=== PATIENT | female | born 1945 | race Caucasian/White ===

== ENCOUNTER → 2016-12-31 | Outpatient (CLI) | payer BC ==
[~2016-12-31] MED LIST: ATEN-173 PO; CALCTAB13 PO; FINACEA TOP; FISHOIL PO; GLCSC750600 PO; MULTTAB58 PO
--- NOTE | 2016-12-31 16:08 | MAMMOGRAPHY REPORT ---
BILATERAL DIGITAL SCREENING MAMMOGRAM WITH CAD: 12/31/2016 CLINICAL HISTORY: Routine screening. TECHNIQUE: Bilateral CC and MLO views were obtained. Current study was also evaluated with a Compute r Aided Detection (CAD) system. COMPARISON: Comparison is made to exams dated: 12/31/2015 mammogram, 12/28/2014 mammogram, 12/27/2013 m ammogram, 12/22/2012 mammogram, 12/22/2011 mammogram, and 07/16/2010 mammogram - [facility] enter. BREAST COMPOSITION: There are scattered areas of fibroglandular density in both breasts. FINDINGS: The parenchymal pattern is similar to prior mammograms. There are minimal vascular calcif ications and scattered stable benign-appearing microcalcifications in the breasts. No developing mas s, architectural distortion or cluster of suspicious microcalcifications is seen. IMPRESSION: ACR BI-RADS CATEGORY 2: BENIGN There is no mammographic evidence of malignancy. A 1 year screening mammogram is recommended. The pa tient will receive written notification of the results. Approximately 10% of breast cancers are not detected with mammography. A negative mammographic report should not delay biopsy if a clinically suggestive mass is present. Belkis Lema M.D. ay/:12/31/2016 15:30:12 Human Resources Director: Javy Evangelista RT(R)([place]), [facility] letter sent: Normal 1/2 BI-RADS Code: ACR BI-RADS Category 2: Benign
== END | disposition home or self-care (01) ==
LOC: C.MAMM 12:07
PROVIDERS: ATTEND Family Medicine
DX: Z12.31 Encounter for screening mammogram for malignant neoplasm of breast (principal)

== ENCOUNTER → 2017-04-24 | Outpatient (CLI) | payer BC ==
--- NOTE | 2017-04-24 11:16 | DIAGNOSTIC IMAGING REPORT ---
L STERNOCLAVICULAR JOINT(S) CLINICAL HISTORY: Lump near left sternoclavicular joint. COMPARISON STUDY: None. FINDINGS: There is superior subluxation of the left sternoclavicular joint compared to the right. The left clavicle is displaced 8 mm superior in comparison to the right clavicle. There is mild widening of the left sternoclavicular joint. Poststernotomy changes are noted. No fractures identified. IMPRESSION: Widening of the left sternoclavicular joint with super subluxation/dislocation of the left clavicle in relation to the sternum. Electronically signed by: Vishal Cerna M.D. 04/24/2017 11:14 AM Dictated Date/Time: 04/24/2017 11:12 AM
[2017-04-24 12:43] LABS: BLOOD UREA NITROGEN 12 mg/dl (7-18); BUN/CREATININE RATIO 16.1 (10-20); CALCIUM 9.4 mg/dl (8.5-10.1); CARBON DIOXIDE 28 mmol/L (21-32); CHLORIDE 102 mmol/L (98-107); CREATININE 0.74 mg/dl (0.60-1.20); GLUCOSE 98 mg/dl (70-99); POTASSIUM 4.4 mmol/L (3.5-5.1); SODIUM 137 mmol/L (136-145)
== END | disposition home or self-care (01) ==
LOC: C.RAD 09:48
PROVIDERS: ATTEND Family Medicine
DX: Q74.0 Other congenital malformations of upper limb(s), including shoulder girdle (principal); Z95.4 Presence of other heart-valve replacement; Z11.59 Encounter for screening for other viral diseases

== ENCOUNTER 2021-11-26 18:48 | Inpatient (IN) ==
[2021-11-26] MEDS ORDERED: AZITHROMYCIN 500 MG in DEXTROSE 5% 250 ML IV ONE (19:11)
[2021-11-26] MEDS ORDERED: SODIUM CHLORIDE 0.9% 1000ML 1,000 ML IV ONE (19:11)
[2021-11-26] MEDS ORDERED: cefTRIAXone SODIUM 2,000 MG/70 ML BAG IV STA (19:11)
--- NOTE | 2021-11-26 19:11 | Emergency Department Note ---
Impression & Plan Hypoxia, Anemia, Acute hyponatremia ED Provider Note NAME: AUSTEN OCHOA AGE: 76 SEX: F : 1945 ARRIVES VIA: Walk-In INFORMANT: Patient ED PROVIDER(S): Srinath Maya DO CHIEF COMPLAINT: cough, fever and shortness of breath HPI: Patient is a 76-year-old female who presents to the ER for upper respiratory symptoms that started this past Thursday. She admits to a cough, runny nose, congestion, and fevers. She has not been around anybody that has been sick recently. She admits to shortness of breath as well. No belly pain, nausea, vomiting, or diarrhea. No dysuria, urgency, or frequency. No other exacerbating or remitting factors. Denies any history of smoking, asthma or COPD. ROS: See above HPI for pertinent positives & negatives. A total of 10 systems reviewed and were otherwise negative. PAST MEDICAL HISTORY:See Below PAST SURGICAL HISTORY:See Below FAMILY HISTORY:See Below SOCIAL HISTORY:See Below HOME MEDICATIONS:See Below ALLERGIES:See Below VITALS:See Below PHYSICAL EXAMINATION: GENERAL: Sitting up in bed, alert, well appearing, well nourished, no distress, non-toxic EYE EXAM: normal conjunctiva. PERRL and EOM's grossly intact. OROPHARYNX: no exudate, no erythema, lips, buccal mucosa, and tongue normal and mucous membranes are moist NECK: supple, no nuchal rigidity, no adenopathy, non-tender LUNGS: Diminished bilaterally. Normal chest wall mechanics HEART: no murmurs, S1 normal and S2 normal ABDOMEN: abdomen soft, non-tender, normo-active bowel sounds, no masses, no rebound or guarding. UPPER EXTREMITIES: upper extremities are grossly normal. LOWER EXTREMITIES: No pitting edema. NEURO EXAM: Normal sensorium, cranial nerves II-XII grossly intact, normal speech, no gross weakness of arms, no gross weakness of legs. MEDICAL DECISION MAKING: Patient is a 76-year-old female who presents the ER with above-stated complaint. IV was established blood work was obtained. She was found to be hypotensive with systolic pressures 90 and hypoxic. She was placed on 2 L nasal cannula. O2 saturations trended up from 84 to 85% to 94-98. Labs show no significant leukocytosis. Mild anemia 11.8. BMP with a moderate hyponatremia 123. CO2 low at 19. Creatinine elevated at 1.9. Lactate was normal. LFTs bilirubin was unremarkable. Troponin was negative. Pro-Mahad elevated at 2. UA was contaminated with multiple epithelial cells. Influenza COVID and RSV were negative. Chest x-ray does support pneumonia. Patient was given IV Rocephin and azithromycin as well as fluids. She remained on nasal cannula. She was updated bedside. Discussed with the hospitalist. Admitted for further work-up Triage Nursing notes reviewed. Limited review of prior medical records performed Vital Signs: reviewed and remarkable for hypoxic and hypotension Differential diagnosis: Differential diagnoses includes but is not limited to pneumonia, bronchitis, COPD/Asthma exacerbation, pneumothorax, pulmonary embolism, congestive heart failure, acute coronary syndrome ER treatment provided: See below Diagnostics interpreted by me: ECG: Sinus rhythm rate 84 Normal axis No PVCs T wave inversion in septal leads Cardiac Monitoring: An order was placed for continuous cardiac monitoring. The monitor shows a rate of 90 with sinus rhythm. Laboratory studies: As stated above and show below. Imaging studies: Portable AP upright 1 view of the chest shows pneumonia Consultation(s): To the hospitalist for further evaluation Procedures: none Critical Care: I have personally spent 35 minutes of critical care time in the direct management of this patient. This includes bedside care, interpretation of diagnostic studies, and testing, discussion with consultants, patient, and family members, and other required patient management activities. This 35 minutes is in excess of all separately billable procedures. Past Med/Surg History Medical History Acid reflux Arthritis Closed left arm fracture Hx, "healed" without surgical intervention, residual soreness Glaucoma HX History of anemia History of blood transfusion x2 episodes (40+ years ago) Hx of aortic valve disorder s/p AVR (+ TAA repair)- 2012 2/2 bicuspic AV exercise stress test (06/15/19- [facility]) with normal prosthesis systolic gradients for this type prosthesis Migraine HX Pancreatic cyst Temporomandibular joint disorder No locking, wears mouth guard HS Von Willebrand disease, type I Surgical History History of aortic aneurysm repair TAA repair- 2012 ([facility] [place]) History of aortic valve replacement 2012 ([facility] [place]) d/t bicuspic valve disorder (follows with Dr. VELÁSQUEZ) History of bilateral tubal ligation History of cardiac cath 2012 > no stents History of cataract surgery R/L History of colonoscopy History of dilatation and curettage History of esophagogastroduodenoscopy (EGD) History of surgery EUS 05/03/21 [facility] History of tooth extraction History of transesophageal echocardiography ([facility]) Status post glaucoma surgery R/L eyes Family History Other No family history of adverse response to anesthesia Social History Smoking Status: Never smoker Second Hand Exposure: Yes (family smoked); Hx Alcohol Use: Yes Alcohol type: beer, wine and hard liquor Hx Substance Use: No Preferred Language: Togolese Communication Ability: Effective Airline Flight Attendant Required: No Beliefs That Will Affect Care: None Current Living Situation: Spouse current occupational status: retired Feels Safe at Home: Yes Assistive Devices: Glasses Allergies Allergies Allergy/AdvReac Type Severity Reaction Status Date / Time bee venom protein (honey bee) Allergy Severe Anaphylaxis Verified 11/26/21 20:29 pollen extracts Allergy Intermediate runny Verified 11/26/21 20:29 nose, cough, itchy eyes Home Meds Home Medications Medication Instructions Recorded Confirmed aspirin 81 mg tablet,delayed 81 mg PO HS 02/25/19 11/26/21 release acetaminophen 500 mg tablet 500 mg PO Q6H PRN 04/29/21 11/26/21 losartan 100 mg tablet 50 mg PO QAM 04/29/21 11/26/21 epinephrine 0.3 mg/0.3 mL 0.3 mg IM DIRECTED PRN 11/26/21 11/26/21 injection, auto-injector (EpiPen) erythromycin with ethanol 2 % 1 applic TOPICAL BID PRN 11/26/21 11/26/21 topical gel Previous Rx's Medication Instructions Recorded carvedilol 12.5 mg tablet 12.5 mg PO BID #180 tab 07/25/19 Results & Data (ED) Vital Signs Vital Signs - 24 hr 11/26/21 18:52 11/26/21 19:30 11/26/21 20:00 Temperature 37.4 C Temperature Source Temporal Artery Scan Pulse Rate 80 86 Pulse Rate [Apical] 86 84 Respiratory Rate 16 20 18 Respiratory Effort / Characteristics Non-Labored Respiratory Depth Normal Blood Pressure 93/60 L Blood Pressure [Right Arm] 99/61 L 104/70 Blood Pressure Mean 71 Blood Pressure Mean [Right Arm] 73 81 Blood Pressure Position [Right Arm] Semi-fowlers Pulse Oximetry 88 L 95 100 Oxygen Delivery Method Room Air Nasal Cannula Nasal Cannula Oxygen Flow Rate 2 2 Sepsis Recent Fever Within 48 Hours No Sepsis New/Unexplained Change in Mental Status No Sepsis Action Taken by Nursing No Action Required 11/26/21 21:10 11/26/21 21:53 11/26/21 22:30 Temperature Temperature Source Pulse Rate Pulse Rate [Apical] 76 81 78 Respiratory Rate 22 24 20 Respiratory Effort / Characteristics Non-Labored Spontaneous Respiratory Depth Normal Blood Pressure Blood Pressure [Right Arm] 101/64 113/72 101/66 Blood Pressure Mean Blood Pressure Mean [Right Arm] 76 85 77 Blood Pressure Position [Right Arm] Semi-fowlers Semi-fowlers Pulse Oximetry 98 99 98 Oxygen Delivery Method Nasal Cannula Nasal Cannula Nasal Cannula Oxygen Flow Rate 2 2 2 Sepsis Recent Fever Within 48 Hours Sepsis New/Unexplained Change in Mental Status Sepsis Action Taken by Nursing Laboratory Data Result diagrams: 11/26/21 19:30 11/26/21 19:30 Lab Results 11/26/21 11/26/21 11/26/21 Range/Units 19:30 19:30 19:30 WBC 10.55 (4.8-10.8) K/uL RBC 3.84 L (4.2-5.4) M/uL Hgb 11.8 L (12.0-16.0) g/dL Hct 34.5 L (37-47) % MCV 89.8 (80-100) fL MCH 30.7 (25-34) pg MCHC 34.2 (32-36) g/dL RDW Std Deviation 45.1 (36.4-46.3) fL RDW Coeff of Yesy 13.6 (11.5-14.5) % Plt Count 304 (130-400) K/uL MPV 9.6 (7.4-10.4) fL Immature Gran % (Auto) 0.3 % Neut % (Auto) 81.1 % Lymph % (Auto) 9.1 % [place] % (Auto) 9.3 % Eos % (Auto) 0.1 % Baso % (Auto) 0.1 % Neut # (Auto) 8.56 H (1.4-6.5) K/uL Lymph # (Auto) 0.96 L (1.2-3.4) K/uL [place] # (Auto) 0.98 H (0.11-0.59) K/uL Eos # (Auto) 0.01 (0-0.5) K/uL Baso # (Auto) 0.01 (0-0.2) K/uL Immature Gran # (Auto) 0.03 H (0.00-0.02) K/uL PT 10.3 (9.0-12.0) Seconds INR 1.0 (0.9-1.1) APTT 31.5 H (21.0-31.0) Seconds PTT Ratio 1.1 Sodium (136-145) mmol/L Potassium (3.5-5.1) mmol/L Chloride (98-107) mmol/L Carbon Dioxide (21-32) mmol/L Anion Gap (3-11) BUN (6-23) mg/dl Creatinine (0.6-1.2) mg/dl Est Cr Clr Drug Dosing ml/min Est GFR ( Amer) ml/min Est GFR (Non-Af Amer) ml/min BUN/Creatinine Ratio (10-20) Glucose (70-99(Fasting)) mg/dl Osmolality (280-300) mOsm/kg Lactate (0.4-2.0) mmol/L Calcium (8.5-10.1) mg/dl Magnesium (1.7-2.4) mg/dl Total Bilirubin (0.2-1.0) mg/dl AST (13-39) U/L ALT (7-52) U/L Alkaline Phosphatase (34-104) U/L Troponin I High Sens (0-14) pg/ml Total Protein (6.0-8.3) gm/dl Albumin (3.4-5.0) gm/dl Globulin (2.5-4.0) gm/dl Albumin/Globulin Ratio (0.9-2) Procalcitonin 1.94 H (0-0.5) ng/ml Urine Color Urine Appearance (Clear) Urine pH (4.5-7.5) Ur Specific [place] (1.000-1.030) Urine Protein (Negative) Urine Glucose (UA) (Negative) Urine Ketones (Negative) Urine Blood (Negative) Urine Nitrite (Negative) Urine Bilirubin (Negative) Urine Urobilinogen (Negative) Ur Leukocyte Esterase (Negative) Urine WBC (Auto) (0-5) /hpf Urine RBC (Auto) (0-4) /hpf U Hyaline Cast (Auto) (0-5) /lpf U Epithel Cells (Auto) (0-5) /lpf Urine Bacteria (Auto) (Negative) SARS-CoV-2 (PCR) (Negative) Influenza Type A (PCR) (Neg) Influenza Type B (PCR) (Neg) RSV (RT-PCR) (Neg) 11/26/21 11/26/21 11/26/21 Range/Units 19:30 19:30 19:35 WBC (4.8-10.8) K/uL RBC (4.2-5.4) M/uL Hgb (12.0-16.0) g/dL Hct (37-47) % MCV (80-100) fL MCH (25-34) pg MCHC (32-36) g/dL RDW Std Deviation (36.4-46.3) fL RDW Coeff of Yesy (11.5-14.5) % Plt Count (130-400) K/uL MPV (7.4-10.4) fL Immature Gran % (Auto) % Neut % (Auto) % Lymph % (Auto) % [place] % (Auto) % Eos % (Auto) % Baso % (Auto) % Neut # (Auto) (1.4-6.5) K/uL Lymph # (Auto) (1.2-3.4) K/uL [place] # (Auto) (0.11-0.59) K/uL Eos # (Auto) (0-0.5) K/uL Baso # (Auto) (0-0.2) K/uL Immature Gran # (Auto) (0.00-0.02) K/uL PT (9.0-12.0) Seconds INR (0.9-1.1) APTT (21.0-31.0) Seconds PTT Ratio Sodium 123 L (136-145) mmol/L Potassium 3.7 (3.5-5.1) mmol/L Chloride 97 L (98-107) mmol/L Carbon Dioxide 19 L (21-32) mmol/L Anion Gap 7 (3-11) BUN 48 H (6-23) mg/dl Creatinine 1.93 H (0.6-1.2) mg/dl Est Cr Clr Drug Dosing 25.5 ml/min Est GFR ( Amer) 28.8 ml/min Est GFR (Non-Af Amer) 24.9 ml/min BUN/Creatinine Ratio 24.9 H (10-20) Glucose 107 H (70-99(Fasting)) mg/dl Osmolality 284 (280-300) mOsm/kg Lactate (0.4-2.0) mmol/L Calcium 9.1 (8.5-10.1) mg/dl Magnesium 2.1 (1.7-2.4) mg/dl Total Bilirubin 0.5 (0.2-1.0) mg/dl AST 35 (13-39) U/L ALT 21 (7-52) U/L Alkaline Phosphatase 72 (34-104) U/L Troponin I High Sens 8.1 (0-14) pg/ml Total Protein 10.1 H (6.0-8.3) gm/dl Albumin 3.4 (3.4-5.0) gm/dl Globulin 6.7 H (2.5-4.0) gm/dl Albumin/Globulin Ratio 0.5 L (0.9-2) Procalcitonin (0-0.5) ng/ml Urine Color Yellow Urine Appearance Clear (Clear) Urine pH 7.0 (4.5-7.5) Ur Specific [place] 1.022 (1.000-1.030) Urine Protein 2+ H (Negative) Urine Glucose (UA) Negative (Negative) Urine Ketones Negative (Negative) Urine Blood Negative (Negative) Urine Nitrite Negative (Negative) Urine Bilirubin Negative (Negative) Urine Urobilinogen Negative (Negative) Ur Leukocyte Esterase Trace H (Negative) Urine WBC (Auto) 5-10 H (0-5) /hpf Urine RBC (Auto) 0-4 (0-4) /hpf U Hyaline Cast (Auto) 0 (0-5) /lpf U Epithel Cells (Auto) 20-30 H (0-5) /lpf Urine Bacteria (Auto) Negative (Negative) SARS-CoV-2 (PCR) (Negative) Influenza Type A (PCR) (Neg) Influenza Type B (PCR) (Neg) RSV (RT-PCR) (Neg) 11/26/21 11/26/21 Range/Units 19:41 19:50 WBC (4.8-10.8) K/uL RBC (4.2-5.4) M/uL Hgb (12.0-16.0) g/dL Hct (37-47) % MCV (80-100) fL MCH (25-34) pg MCHC (32-36) g/dL RDW Std Deviation (36.4-46.3) fL RDW Coeff of Yesy (11.5-14.5) % Plt Count (130-400) K/uL MPV (7.4-10.4) fL Immature Gran % (Auto) % Neut % (Auto) % Lymph % (Auto) % [place] % (Auto) % Eos % (Auto) % Baso % (Auto) % Neut # (Auto) (1.4-6.5) K/uL Lymph # (Auto) (1.2-3.4) K/uL [place] # (Auto) (0.11-0.59) K/uL Eos # (Auto) (0-0.5) K/uL Baso # (Auto) (0-0.2) K/uL Immature Gran # (Auto) (0.00-0.02) K/uL PT (9.0-12.0) Seconds INR (0.9-1.1) APTT (21.0-31.0) Seconds PTT Ratio Sodium (136-145) mmol/L Potassium (3.5-5.1) mmol/L Chloride (98-107) mmol/L Carbon Dioxide (21-32) mmol/L Anion Gap (3-11) BUN (6-23) mg/dl Creatinine (0.6-1.2) mg/dl Est Cr Clr Drug Dosing ml/min Est GFR ( Amer) ml/min Est GFR (Non-Af Amer) ml/min BUN/Creatinine Ratio (10-20) Glucose (70-99(Fasting)) mg/dl Osmolality (280-300) mOsm/kg Lactate 1.0 (0.4-2.0) mmol/L Calcium (8.5-10.1) mg/dl Magnesium (1.7-2.4) mg/dl Total Bilirubin (0.2-1.0) mg/dl AST (13-39) U/L ALT (7-52) U/L Alkaline Phosphatase (34-104) U/L Troponin I High Sens (0-14) pg/ml Total Protein (6.0-8.3) gm/dl Albumin (3.4-5.0) gm/dl Globulin (2.5-4.0) gm/dl Albumin/Globulin Ratio (0.9-2) Procalcitonin (0-0.5) ng/ml Urine Color Urine Appearance (Clear) Urine pH (4.5-7.5) Ur Specific [place] (1.000-1.030) Urine Protein (Negative) Urine Glucose (UA) (Negative) Urine Ketones (Negative) Urine Blood (Negative) Urine Nitrite (Negative) Urine Bilirubin (Negative) Urine Urobilinogen (Negative) Ur Leukocyte Esterase (Negative) Urine WBC (Auto) (0-5) /hpf Urine RBC (Auto) (0-4) /hpf U Hyaline Cast (Auto) (0-5) /lpf U Epithel Cells (Auto) (0-5) /lpf Urine Bacteria (Auto) (Negative) SARS-CoV-2 (PCR) NEGATIVE (Negative) Influenza Type A (PCR) Negative (Neg) Influenza Type B (PCR) Negative (Neg) RSV (RT-PCR) Negative (Neg) Administered Medications Discontinued Medications Albuterol (Albut/Ipratrop 3mg/0.5mg Neb 3 Ml Vial) 3 ml NEB NOW STA; Protocol Stop: 11/26/21 21:53 Last Admin: 11/26/21 22:34 Dose: 3 ml Documented by: [id number] Sodium Chloride (Nss 1000ml) 1,000 mls @ 999 mls/hr IV .[id number] ONE Stop: 11/26/21 20:11 Last Infusion: 11/26/21 22:18 Dose: 0 mls/hr Documented by: [id number] Admin: 11/26/21 19:43 Dose: 999 mls/hr Documented by: [id number] Ceftriaxone Sodium (Rocephin) 2,000 mg in 70 mls @ 140 mls/hr IV NOW STA Stop: 11/26/21 19:40 Last Infusion: 11/26/21 22:30 Dose: 0 mls/hr Documented by: [id number] Admin: 11/26/21 21:52 Dose: 140 mls/hr Documented by: [id number] Azithromycin 500 mg/ Dextrose 255 mls @ 125 mls/hr IV ONE ONE Stop: 11/26/21 21:13 Last Infusion: 11/26/21 22:18 Dose: 0 mls/hr Documented by: [id number] Admin: 11/26/21 19:44 Dose: 125 mls/hr Documented by: [id number] Imaging Data Radiologist's Impression: Chest X-Ray 11/26/21 19:07 XR chest 1V portable CLINICAL HISTORY: SEPSIS. COMPARISON STUDY: 01/30/2022 TECHNIQUE: 1 view of the chest FINDINGS: Single frontal view of the chest demonstrates the heart to again be enlarged. The patient is status post previous cardiothoracic surgery. Compared to previous study, there is a decreased inspiratory effort with elevation of hemidiaphragms and crowding of the bronchovascular markings at the lung bases bilaterally. Hazy groundglass opacities are seen involving both lower lobes which may represent pleural fluid layering along the posterior gutters versus early pneumonia. There is blunting of left costophrenic angle. There is no evid ence for vascular congestion. There is no acute osseous pathology. IMPRESSION: 1. Decreased inspiration with hazy groundglass opacities involving both lower lobes. The findings are suspicious of pleural fluid layering along the posterior gutters. Underlying alveolar opacities cannot be excluded and follow-up PA and lateral radiographs are recommended for further evaluation. 2. There is blunting of left costophrenic angle characteristic of definite left pleural effusion. ACT 112: Negative or not required by law. Electronically signed by: Jerzy Molina M.D. 11/26/2021 7:26 PM Discharge Plan Visit Data Chief Complaint: Illness Stated Complaint: TIA SYMPTOMS, DEHYDRATION ED Provider: Srinath Maya Discharge Problem: Hypoxia, Anemia, Acute hyponatremia Forms Stand Alone Forms: My Apto Prescriptions Prescriptions: No Action carvedilol 12.5 mg tablet 12.5 mg PO BID Qty: 180 RF: 1 aspirin 81 mg tablet,delayed release (DR/EC) 81 mg PO HS RF: 0 losartan 100 mg tablet 50 mg PO QAM RF: 0 acetaminophen 500 mg Tablet 500 mg PO Q6H PRN (Reason: Pain) RF: 0 epinephrine [EpiPen] 0.3 mg/0.3 mL auto-injector 0.3 mg IM DIRECTED PRN (Reason: bronchodilation) RF: 0 erythromycin with ethanol 2 % gel 1 applic topical BID PRN (Reason: AFFECTED AREA) RF: 0 Referrals Referrals: Kaz Hewitt MD [Primary Care Provider] - Discharge Problem: Anemia Qualifiers: Anemia type: unspecified type Qualified Code(s): D64.9 - Anemia, unspecified
--- NOTE | 2021-11-26 19:27 | XRay Report ---
XR chest 1V portable CLINICAL HISTORY: SEPSIS. COMPARISON STUDY: 01/30/2022 TECHNIQUE: 1 view of the chest FINDINGS: Single frontal view of the chest demonstrates the heart to again be enlarged. The patient is status p ost previous cardiothoracic surgery. Compared to previous study, there is a decreased inspiratory ef fort with elevation of hemidiaphragms and crowding of the bronchovascular markings at the lung bases bilaterally. Hazy groundglass opacities are seen involving both lower lobes which may represent pleur al fluid layering along the posterior gutters versus early pneumonia. There is blunting of left costo phrenic angle. There is no evidence for vascular congestion. There is no acute osseous pathology. IMPRESSION: 1. Decreased inspiration with hazy groundglass opacities involving both lower lobes. The findings are suspicious of pleural fluid layering along the posterior gutters. Underlying alveolar opacities jorge ot be excluded and follow-up PA and lateral radiographs are recommended for further evaluation. 2. There is blunting of left costophrenic angle characteristic of definite left pleural effusion. ACT 112: Negative or not required by law. Electronically signed by: Jerzy Molina M.D. 11/26/2021 7:26 PM
[2021-11-26 20:02] LABS: Basophils # (auto) 0.01 K/uL (0-0.2); Basophils % (auto) 0.1 %; Eosinophils # (auto) 0.01 K/uL (0-0.5); Eosinophils % (auto) 0.1 %; Hematocrit (blood only) 34.5 % (37-47); Hemoglobin 11.8 g/dL (12.0-16.0); Immature Granulocytes # (auto) 0.03 K/uL (0.00-0.02); Immature Granulocytes % (auto) 0.3 %; Lymphocytes # (auto) 0.96 K/uL (1.2-3.4); Lymphocytes % (auto) 9.1 %; Mean Corpuscular Hemoglobin 30.7 pg (25-34); Mean Corpuscular Hgb Conc 34.2 g/dL (32-36); Mean Corpuscular Volume 89.8 fL (80-100); Mean Platelet Volume 9.6 fL (7.4-10.4); Monocytes # (auto) 0.98 K/uL (0.11-0.59); Monocytes % (auto) 9.3 %; Neutrophils # (auto) 8.56 K/uL (1.4-6.5); Neutrophils % (auto) 81.1 %; Platelet Count 304 K/uL (130-400); RDW Coefficient of Variation 13.6 % (11.5-14.5); RDW Standard Deviation 45.1 fL (36.4-46.3); Red Blood Count 3.84 M/uL (4.2-5.4); White Blood Count 10.55 K/uL (4.8-10.8)
[2021-11-26 20:04] LABS: Partial Thromboplastin Ratio 1.1; Partial Thromboplastin Time 31.5 Seconds (21.0-31.0); Prothrombin Time 10.3 Seconds (9.0-12.0)
[2021-11-26 20:13] LABS: Albumin Globulin Ratio 0.5 (0.9-2); Albumin Level 3.4 gm/dl (3.4-5.0); BUN Creatinine Ratio 24.9 (10-20); Bilirubin,Total 0.5 mg/dl (0.2-1.0); Calcium 9.1 mg/dl (8.5-10.1); Creatinine Clr Calc Pharmacy 25.5 ml/min; Est GFR (African American) 28.8 ml/min; Est GFR (Non-African American) 24.9 ml/min; Globulin 6.7 gm/dl (2.5-4.0); Magnesium 2.1 mg/dl (1.7-2.4); Potassium 3.7 mmol/L (3.5-5.1); Total Protein 10.1 gm/dl (6.0-8.3)
[2021-11-26 20:16] LABS: Troponin I High Sensitivity 8.1 pg/ml (0-14)
[2021-11-26 20:58] LABS: Influenza A virus by PCR Negative (Neg); Influenza B virus by PCR Negative (Neg); RSV by PCR Negative (Neg); SARS CoV2 RNA(COVID-19) InHosp NEGATIVE (Negative)
[2021-11-26 21:03] LABS: Appearance Urine Clear (Clear); Bacteria Urine Automated Negative (Negative); Bilirubin Urine Negative (Negative); Blood Urine Negative (Negative); Cast Urine Automated 0 /lpf (0-5); Color Urine Yellow; Epithelial Cell Urine Auto 20-30 /lpf (0-5); Glucose Urine UA Negative (Negative); Ketones Urine Negative (Negative); Leukocyte Esterase Urine Trace (Negative); Nitrite Urine Negative (Negative); Protein Urine 2+ (Negative); RBC Urine Automated 0-4 /hpf (0-4); Specific Gravity Urine 1.022 (1.000-1.030); Urobilinogen Urine Negative (Negative)
[2021-11-26] MEDS ORDERED: ALBUT/IPRATROP 3MG/0.5MG NEB 3 ML VIAL NEB STA (21:52)
[2021-11-26] MEDS ORDERED: methylPREDNISolone 20 MG in SYRINGE 0 ML IV STA (22:53)
--- NOTE | 2021-11-26 22:54 | History & Physical Report ---
Date of Service November 26, 2021 Assessment & Plan (1) Acute hypoxemic respiratory failure: Plan: Secondary to bilateral bronchopneumonia Community-acquired infection hx groundglass opacities on outpatient imaging for which patient was evaluated by [facility] member service specialist last week.0 No overt sepsis for now hx aortic regurgitation/ascending aortic aneurysm status post AVR/ aneurysm repair hypertension, BP on the lower side multiple myeloma status post Xgeva, patient referred by [facility] trade specialist to [facility] [place] hx von Willebrand's disease as per records ARF on CKD secondary to illness Acute on chronic hyponatremia secondary to illness Medical telemetry Supplemental O2 Solu-Medrol, neb treatment for now given wheezing and hypoxemia CS, Ceftriaxone, Doxycycline Careful correction of sodium, monitor creatinine response to IVF Hold losartan until creatinine back to baseline Appropriate to decrease beta-price dose for now given borderline BP DVT prophylaxis. Heparin subcu Full code Text document was generated using [employer] voice recognition software. It may contain grammatical or spelling errors. Kindly contact undersigned for clarification of any documentation item in question. History of Present Illness Chief Complaint: Call, fever, shortness of breath Primary Care Provider: Kaz Hewitt MD History obtained from patient, family, and records. Medical history significant for aortic regurgitation/ascending aortic aneurysm status post AVR/ aneurysm repair, hypertension, multiple myeloma status post Xgeva, von Willebrand's disease as per records, CRI (baseline creatinine 1.6- 1.7), chronic hyponatremia, history groundglass opacities on outpatient chest imaging. Few days history of sinus congestion followed by cough productive of junky yellow sputum and fever at home. No chest pain. Some shortness of breath. Not sure about recent sick contacts. Patient completed COVID-19 vaccination. Denies aspiration. O2 sats noted to be 80s upon arrival at the ER. Ceftriaxone and azithromycin given at the ER for pneumonia. Medical History as above Surgical History : Cataract surgery, dental surgery, laser trabeculoplasty, BTL, prostatic aortic valve replacement, sternal debridement Family History : Breast cancer, heart disease, lung cancer Personal/Social history : Non-smoker, occasional EtOH intake, retired mental health therapist Allergies Allergy/AdvReac Type Severity Reaction Status Date / Time bee venom protein (honey bee) Allergy Severe Anaphylaxis Verified 11/26/21 20:29 pollen extracts Allergy Intermediate runny Verified 11/26/21 20:29 nose, cough, itchy eyes Home Medications Medication Instructions Recorded Confirmed Type aspirin 81 mg tablet,delayed 81 mg PO HS 02/25/19 11/26/21 History release carvedilol 12.5 mg tablet 12.5 mg PO BID #180 tab 07/25/19 11/26/21 Rx acetaminophen 500 mg tablet 500 mg PO Q6H PRN 04/29/21 11/26/21 History losartan 100 mg tablet 50 mg PO QAM 04/29/21 11/26/21 History epinephrine 0.3 mg/0.3 mL 0.3 mg IM DIRECTED PRN 11/26/21 11/26/21 History injection, auto-injector (EpiPen) erythromycin with ethanol 2 % 1 applic TOPICAL BID PRN 11/26/21 11/26/21 History topical gel Past Med/Surg History Medical History Acid reflux Arthritis Closed left arm fracture Hx, "healed" without surgical intervention, residual soreness Glaucoma HX History of anemia History of blood transfusion x2 episodes (40+ years ago) Hx of aortic valve disorder s/p AVR (+ TAA repair)- 08/07 bicuspic AV exercise stress test (06/15/19- [facility]) with normal prosthesis systolic gradients for this type prosthesis Migraine HX Pancreatic cyst Temporomandibular joint disorder No locking, wears mouth guard HS Von Willebrand disease, type I Surgical History History of aortic aneurysm repair TAA repair- [place] [place] History of aortic valve replacement 2012 ([facility] [place]) d/t bicuspic valve disorder (follows with Dr. VELÁSQUEZ) History of bilateral tubal ligation History of cardiac cath 2011 > no stents History of cataract surgery R/L History of colonoscopy History of dilatation and curettage History of esophagogastroduodenoscopy (EGD) History of surgery EUS 05/03/21 [facility] History of tooth extraction History of transesophageal echocardiography (HOMERO) Status post glaucoma surgery R/L eyes Family History Other No family history of adverse response to anesthesia Social History Smoking Status: Never smoker Second Hand Exposure: Yes (family smoked); Hx Alcohol Use: Yes Alcohol type: beer, wine and hard liquor Hx Substance Use: No Preferred Language: Thai Communication Ability: Effective Foxing Closer Required: No Beliefs That Will Affect Care: None Current Living Situation: Spouse current occupational status: retired Other Information That Helps Us Care for You: No Feels Safe at Home: Yes Safety Concerns: Feels Safe At This Time Assistive Devices: Glasses Review of Systems Review of Systems: As per HPI, all other systems reviewed and negative Physical Exam Physical Exam: GENERAL: Comfortable, slightly anxious, no respiratory distress SKIN: Normal color, warm HEENT: Bespectacled, Adelino palpebral conjunctivae, no ptosis, dry buccal mucosa, nasal cannula in place NECK : Supple, no tenderness CHEST : Decreased breath sounds, occasional expiratory wheezes, no tenderness HEART : RRR, systolic murmur over sternal border ABDOMEN: Some distention, nontender EXTREMITIES : No LE swelling/tenderness, no other conspicuous deformities noted NEUROLOGIC : Coherent, no facial asymmetry, no other gross focality Results & Data Results & Data ([facility]) Vital Signs (Past 12 Hours) Vital Signs Temp Pulse Pulse Resp BP BP Pulse Ox 11/26/21 22:30 78 20 101/66 98 11/26/21 21:53 81 24 113/72 99 11/26/21 21:10 76 22 101/64 98 11/26/21 20:00 84 18 104/70 100 11/26/21 19:30 86 86 20 99/61 L 95 11/26/21 18:52 37.4 C 80 16 93/60 L 88 L Laboratory Results Laboratory Results WBC 10.55 K/uL (4.8-10.8) 11/26/21 19:30 RBC 3.84 M/uL (4.2-5.4) L 11/26/21 19:30 Hgb 11.8 g/dL (12.0-16.0) L 11/26/21 19:30 Hct 34.5 % (37-47) L 11/26/21 19:30 MCV 89.8 fL (80-100) 11/26/21 19:30 MCH 30.7 pg (25-34) 11/26/21 19:30 MCHC 34.2 g/dL (32-36) 11/26/21 19:30 RDW Std Deviation 45.1 fL (36.4-46.3) 11/26/21 19: RDW Coeff of Yesy 13.6 % (11.5-14.5) 11/26/21: Plt Count 304 K/uL (130-400) 11/26/21 19: MPV 9.6 fL (7.4-10.4) 11/26/21: Immature Gran % (Auto) 0.3 % 11/26/21: Neut % (Auto) 81.1 % 11/26/21 19: Lymph % (Auto) 9.1 % 11/26/21 19: Kimball % (Auto) 9.3 % 11/26/21: Eos % (Auto) 0.1 % 11/26/21: Baso % (Auto) 0.1 % 11/26/21: Neut # (Auto) 8.56 K/uL (1.4-6.5) H 11/26/21: Lymph # (Auto) 0.96 K/uL (1.2-3.4) L 11/26/21:30 Kimball # (Auto) 0.98 K/uL (0.11-0.59) H 11/26/21 19: Eos # (Auto) 0.01 K/uL (0-0.5) 11/26/21: Baso # (Auto) 0.01 K/uL (0-0.2) 11/26/21: Immature Gran # (Auto) 0.03 K/uL (0.00-0.02) H 11/26/21 19:30 PT 10.3 Seconds (9.0-12.0) 11/26/21 19: INR 1.0 (0.9-1.1) 11/26/21: APTT 31.5 Seconds (21.0-31.0) H 11/26/21 19: PTT Ratio 1.1 11/26/21 19: Sodium 123 mmol/L (136-145) L 11/26/21 19: Potassium 3.7 mmol/L (3.5-5.1) 11/26/21: Chloride 97 mmol/L (98-107) L 11/26/21 19:30 Carbon Dioxide 19 mmol/L (21-32) L 11/26/21 19:30 Anion Gap 7 (3-11) 11/26/21 19:30 BUN 48 mg/dl (6-23) H 11/26/21 19:30 Creatinine 1.93 mg/dl (0.6-1.2) H 11/26/21 19:30 Est Cr Clr Drug Dosing 25.5 ml/min 11/26/21 19:30 Est GFR ( Amer) 28.8 ml/min 11/26/21 19:30 Est GFR (Non-Af Amer) 24.9 ml/min 11/26/21 19:30 BUN/Creatinine Ratio 24.9 (10-20) H 11/26/21 19:30 Glucose 107 mg/dl (70-99(Fasting)) H 11/26/21 19:30 Osmolality 284 mOsm/kg (280-300) 11/26/21 19:30 Lactate 1.0 mmol/L (0.4-2.0) 11/26/21 19:41 Calcium 9.1 mg/dl (8.5-10.1) 11/26/21 19:30 Magnesium 2.1 mg/dl (1.7-2.4) 11/26/21 19:30 Total Bilirubin 0.5 mg/dl (0.2-1.0) 11/26/21 19:30 AST 35 U/L (13-39) 11/26/21 19:30 ALT 21 U/L (7-52) 11/26/21 19:30 Alkaline Phosphatase 72 U/L (34-104) 11/26/21 19:30 Troponin I High Sens 8.1 pg/ml (0-14) 11/26/21 19:30 Total Protein 10.1 gm/dl (6.0-8.3) H 11/26/21 19:30 Albumin 3.4 gm/dl (3.4-5.0) 11/26/21 19:30 Globulin 6.7 gm/dl (2.5-4.0) H 11/26/21 19:30 Albumin/Globulin Ratio 0.5 (0.9-2) L 11/26/21 19:30 Procalcitonin 1.94 ng/ml (0-0.5) H 11/26/21 19:30 Urine Color Yellow 11/26/21 19:35 Urine Appearance Clear (Clear) 11/26/21 19:35 Urine pH 7.0 (4.5-7.5) 11/26/21 19:35 Ur Specific [place] 1.022 (1.000-1.030) 11/26/21 19:35 Urine Protein 2+ (Negative) H 11/26/21 19:35 Urine Glucose (UA) Negative (Negative) 11/26/21 19:35 Urine Ketones Negative (Negative) 11/26/21 19:35 Urine Blood Negative (Negative) 11/26/21 19:35 Urine Nitrite Negative (Negative) 11/26/21 19:35 Urine Bilirubin Negative (Negative) 11/26/21 19:35 Urine Urobilinogen Negative (Negative) 11/26/21 19:35 Ur Leukocyte Esterase Trace (Negative) H 11/26/21 19:35 Urine WBC (Auto) 5-10 /hpf (0-5) H 11/26/21 19:35 Urine RBC (Auto) 0-4 /hpf (0-4) 11/26/21 19:35 U Hyaline Cast (Auto) 0 /lpf (0-5) 11/26/21 19:35 U Epithel Cells (Auto) 20-30 /lpf (0-5) H 11/26/21 19:35 Urine Bacteria (Auto) Negative (Negative) 11/26/21 19:35 SARS-CoV-2 (PCR) NEGATIVE (Negative) 11/26/21 19:50 Influenza Type A (PCR) Negative (Neg) 11/26/21 19:50 Influenza Type B (PCR) Negative (Neg) 11/26/21 19:50 RSV (RT-PCR) Negative (Neg) 11/26/21 19:50 Impressions Chest X-Ray 11/26/21 19:07 XR chest 1V portable CLINICAL HISTORY: SEPSIS. COMPARISON STUDY: 01/30/2022 TECHNIQUE: 1 view of the chest FINDINGS: Single frontal view of the chest demonstrates the heart to again be enlarged. The patient is status post previous cardiothoracic surgery. Compared to previous study, there is a decreased inspiratory effort with elevation of hemidiaphragms and crowding of the bronchovascular markings at the lung bases bilaterally. Hazy groundglass opacities are seen involving both lower lobes which may represent pleural fluid layering along the posterior gutters versus early pneumonia. There is blunting of left costophrenic angle. There is no evidence for vascular congestion. There is no acute osseous pathology. IMPRESSION: 1. Decreased inspiration with hazy groundglass opacities involving both lower lobes. The findings are suspicious of pleural fluid layering along the posterior gutters. Underlying alveolar opacities cannot be excluded and follow-up PA and lateral radiographs are recommended for further evaluation. 2. There is blunting of left costophrenic angle characteristic of definite left pleural effusion. ACT 112: Negative or not required by law. Electronically signed by: Jerzy Molina M.D. 11/26/2021 7:26 PM Diagnostic Findings EKG as per my interpretation: Rate 85, NSR, normal axis, T wave abnormalities inferior and septal leads
[2021-11-26] MEDS ORDERED: LACTATED RINGER'S 1,000 ML IV ONE (23:54)
[2021-11-27 00:04] LABS: BUN Creatinine Ratio 24.7 (10-20); Calcium 8.1 mg/dl (8.5-10.1); Creatinine Clr Calc Pharmacy 29.6 ml/min; Est GFR (African American) 34.6 ml/min; Est GFR (Non-African American) 29.8 ml/min; Potassium 3.1 mmol/L (3.5-5.1)
[2021-11-27] MEDS ORDERED: PROMETHAZINE HCL 12.5 MG in SODIUM CHLORIDE 0.9% 50 ML IV PRN (00:11)
[2021-11-27] MEDS ORDERED: ACETAMINOPHEN 500 MG TAB PO PRN (00:11)
[2021-11-27] MEDS ORDERED: oxyCODONE HCL IR 5 MG TAB (IMMEDIATE RELEASE) PO PRN (00:11)
[2021-11-27] MEDS ORDERED: ALBUT/IPRATROP 3MG/0.5MG NEB 3 ML VIAL NEB PRN (00:11)
[2021-11-27] MEDS: ASPIRIN 81 MG ECTAB PO SCH ×3 (00:40→20:40)
[2021-11-27] MEDS ORDERED: POTASSIUM CHLORIDE CRTAB 20 MEQ TABCR PO STA (00:42)
[2021-11-27 01:09] LABS: Appearance Urine Clear (Clear); Bacteria Urine Automated 1+ (Negative); Bilirubin Urine Negative (Negative); Blood Urine Negative (Negative); Cast Urine Automated 0 /lpf (0-5); Color Urine Yellow; Epithelial Cell Urine Auto >30 /lpf (0-5); Glucose Urine UA Negative (Negative); Ketones Urine Negative (Negative); Leukocyte Esterase Urine 2+ (Negative); Nitrite Urine Negative (Negative); RBC Urine Automated 0-4 /hpf (0-4); Specific Gravity Urine 1.018 (1.000-1.030); Urobilinogen Urine Negative (Negative); WBC Urine Automated >30 /hpf (0-5); pH Urine 7.5 (4.5-7.5)
[2021-11-27 01:13] LABS: Protein Urine 2+ (Negative)
[2021-11-27] MEDS: HEPARIN SOD 5,000 UNIT/0.5 ML VIAL SQ SCH ×3 (05:40→22:44)
[2021-11-27 07:10] LABS: Basophils # (auto) 0.01 K/uL (0-0.2); Basophils % (auto) 0.1 %; Eosinophils # (auto) 0.01 K/uL (0-0.5); Eosinophils % (auto) 0.1 %; Hemoglobin 11.1 g/dL (12.0-16.0); Immature Granulocytes # (auto) 0.05 K/uL (0.00-0.02); Immature Granulocytes % (auto) 0.6 %; Lymphocytes # (auto) 0.82 K/uL (1.2-3.4); Lymphocytes % (auto) 9.8 %; Mean Corpuscular Hemoglobin 30.2 pg (25-34); Mean Corpuscular Hgb Conc 33.6 g/dL (32-36); Mean Corpuscular Volume 89.9 fL (80-100); Mean Platelet Volume 9.6 fL (7.4-10.4); Monocytes # (auto) 0.26 K/uL (0.11-0.59); Monocytes % (auto) 3.1 %; Neutrophils # (auto) 7.26 K/uL (1.4-6.5); Neutrophils % (auto) 86.3 %; Platelet Count 300 K/uL (130-400); RDW Coefficient of Variation 13.6 % (11.5-14.5); RDW Standard Deviation 45.3 fL (36.4-46.3); Red Blood Count 3.67 M/uL (4.2-5.4); White Blood Count 8.41 K/uL (4.8-10.8)
[2021-11-27 07:57] LABS: BUN Creatinine Ratio 24.5 (10-20); Calcium 8.4 mg/dl (8.5-10.1); Creatinine Clr Calc Pharmacy 31.8 ml/min; Est GFR (African American) 37.6 ml/min; Est GFR (Non-African American) 32.4 ml/min; Potassium 4.6 mmol/L (3.5-5.1)
[2021-11-27] MEDS ORDERED: carvediloL 6.25 MG TAB PO SCH (09:00)
[2021-11-27] MEDS: carvediloL 3.125 MG TAB PO SCH ×2 (09:38→20:40)
[2021-11-27] MEDS: DOXYCYCLINE HYCLATE 100 MG CAP PO SCH ×2 (09:38→20:40)
--- NOTE | 2021-11-27 09:41 | CT Scan Report ---
CT OF THE CHEST WITHOUT IV CONTRAST CLINICAL HISTORY: pleural effusion vs PNA COMPARISON STUDY: Chest radiograph 11/26/2021. CT DOSE: 299.52 mGy.cm TECHNIQUE: Axial images of the chest were obtained without IV contrast. Images were reviewed in the axial, sagittal, and coronal planes. IV contrast was not administered for this examination. Automat ed exposure control was utilized for the study. A dose lowering technique was utilized adhering to t he principles of ALARA. FINDINGS: No enlarged axillary, mediastinal or hilar lymph nodes are present. There are median rodriguez otomy wires, prosthetic aortic valve and repair of the ascending aorta. Caliber of the ascending aort a is normal. Mild cardiomegaly is noted. There is a small pericardial effusion. There is mild dilatat ion of the central pulmonary arteries. No pneumothorax is present. There is a trace left pleural effu abraham. Extensive bilateral lower lobe airspace opacity is present. There is interlobular septal thicke traci. There are additional airspace opacities within the upper lobe. Numerous tiny upper lobe predomi nant pulmonary nodules are present. Central airways are patent. Mild T12 compression deformity is chr onic. No significant abnormalities identified within visualized portions of the upper abdomen. IMPRESSION: 1. Extensive bilateral lower lobe airspace opacities with additional bilateral upper lobe and right m iddle lobe opacities. Associated interlobular septal thickening. These opacities are nonspecific and could reflect multifocal pneumonia or alveolar pulmonary edema. Although less likely, pulmonary hemor rhage is also within the differential. A follow-up chest CT in 3 months to ensure resolution is recom mended. 2. Mild cardiomegaly. 3. Dilatation of the central pulmonary arteries which raises the possibility of pulmonary arterial hy pertension. 4. Trace left pleural effusion. ACT 112: Negative or not required by law. Electronically signed by: Mohit Alvarez M.D. 11/27/2021 9:40 AM
[2021-11-27 12:43] LABS: BUN Creatinine Ratio 25.9 (10-20); Calcium 8.6 mg/dl (8.5-10.1); Creatinine Clr Calc Pharmacy 35.4 ml/min; Est GFR (African American) 42.9 ml/min
--- NOTE | 2021-11-27 13:35 | Electrocardiogram Report ---
Test Reason : Blood Pressure : / mmHG Vent. Rate : 084 BPM Atrial Rate : 084 BPM P-R Int : 196 ms QRS Dur : 106 ms QT Int : 350 ms P-R-T Axes : 007 041 014 degrees QTc Int : 413 ms Normal sinus rhythm Possible Left atrial enlargement Borderline ECG When compared with ECG of 30-JAN-2021 12:47, No significant change was found Confirmed by Fox Espinsoa ([id number]) on 11/27/2021 1:35:21 PM Referred By: REFERRED SELF Confirmed By:Fox Espinosa
--- NOTE | 2021-11-27 16:51 | Nephrology Consultation ---
Date of Consultation November 27, 2021 Assessment & Plan (1) Electrolyte and fluid disorder: acute on chronic hyponatremia and marked low reading in serum bicarbonate in setting of active/ diffuse PNA and MM. goal sNa for AM is 129, if we can move that way. appears euvolemic on exam but markedly abnormal lung exam and imaging. chronic hyponatremia w/ sNa in low 130s >4 years and recently in high 120s as OP. suspect hyponatremia driven by chronic /structural lung disease -ordered urine studies and will repeat serum osms in am -if next sNa 124 or lower would start lasix -agree w/ stopping IVF and q6h bmp -maintain eukalemia -treat PNA -low threshold for ABG to explain low bicarb (2) CKD (chronic kidney disease) stage 4, GFR 15-29 ml/min: emerged abruptly Aug 2021 > w/ 1/2 gm proteinuria; recommend neph f/u soon after hospital d/c (pt planning move to [place] so may be after move that she establishes but would not defer for long/ high risk for progression) (3) Ground glass opacity present on imaging of lung: pulm had requested hi resolution CT prior to admission; ddx was heart failure, infectious pneumonitis, inhalation injury, myeloma >?if CT chest done here adequate/fulfills high resolution request -will check BNP in AM; will also order preliminary serologies for pulmonary renal syndrome (though no hematuria) including ANCA and anti GBM and ASO, anti DNAse doubt lupus or anti phospholipid; unable to order anti GBM and will defer/revisit in am -?pulm consultation to consider bronchoscopy and/or further serologic work up/eval for pulmonary renal syndrome or other History of Present Illness Reason for Consultation: hyponatremia Requesting Physician: Dr Lam Attending Physician: Marcos Lam MD History of Present Illness 76 y/o F whom I'm asked to see for hyponatremia was admitted for acute hypoxemic respiratory failure attributed to community acquired BL bronchial pneumonia. covid, flu, RSV all negative on presentation. PMH includes HTN, CKD 3B/4 abruptly emerging/ worsening since Aug 2021 and w/ 1/2 gm protienuria, recent diagnosis of multiple myeloma awaiting appt for further eval/second opinion at [facility] [place], s/p AVR for bicuspid valve and ascending aortic repair, von Willebrand's disease, chronic hyponatremia w/ sNa in low 130s since at least january 2020 (some gaps in labs). Presented with several days of sinus congestion, productive cough, fever w/ 02 sats in 80s on ER arrival. her presenting sodium was 123 w/ sOsm 284; no urine studies. she had IV fluids initially and serum sodium peaked at 126 this am, down to 124 by midday. For multiple myeloma she follows w/ Dr Helio Brandon; pt states has had hypercalcemia and hyponatremia as a result of this dx. on recent PET scan for heme, noted to have dependent ground glass opacities BL and sent to pulmonary for this: seen in video visit on 11/18 > DDx for these opacities is broad - including HF, infectious pneumonitis, inhalational injury, process related to myeloma. high resolution CT chest was recommended no c/o of sob; ongoing but improving cough non productive; had been very lightheaded no falls. no n/v. no aches/pains musculosckeletal or abdominal. endorses poor po intake w/ all of her coughing and figures she became dehydrated she tells me. Allergies Allergy/AdvReac Type Severity Reaction Status Date / Time bee venom protein (honey bee) Allergy Severe Anaphylaxis Verified 11/26/21 20:29 pollen extracts Allergy Intermediate runny Verified 11/26/21 20:29 nose, cough, itchy eyes Home Medications Medication Instructions Recorded Confirmed Type aspirin 81 mg tablet,delayed 81 mg PO HS 02/25/19 11/26/21 History release carvedilol 12.5 mg tablet 12.5 mg PO BID #180 tab 07/25/19 11/26/21 Rx acetaminophen 500 mg tablet 500 mg PO Q6H PRN 04/29/21 11/26/21 History losartan 100 mg tablet 50 mg PO QAM 04/29/21 11/26/21 History epinephrine 0.3 mg/0.3 mL 0.3 mg IM DIRECTED PRN 11/26/21 11/26/21 History injection, auto-injector (EpiPen) erythromycin with ethanol 2 % 1 applic TOPICAL BID PRN 11/26/21 11/26/21 History topical gel Patient History Medical History (Updated 11/27/21 @ 19:18 by Zee Kate MD, PhD) Acid reflux Arthritis CKD (chronic kidney disease) stage 4, GFR 15-29 ml/min emerged abruptly Aug 2021 Closed left arm fracture Hx, "healed" without surgical intervention, residual soreness Glaucoma HX Ground glass opacity present on imaging of lung History of anemia History of blood transfusion x2 episodes (40+ years ago) Hx of aortic valve disorder s/p AVR (+ TAA repair)- 2012 2/2 bicuspic AV exercise stress test (06/15/19- [facility]) with normal prosthesis systolic gradients for this type prosthesis Migraine HX Pancreatic cyst Temporomandibular joint disorder No locking, wears mouth guard HS Von Willebrand disease, type I Surgical History History of aortic aneurysm repair [place]- [place] [place] of [place] valve replacement 2012 [place] [place] d/t bicuspic valve disorder (follows with Dr. VELÁSQUEZ) History of bilateral tubal ligation History of cardiac cath 2011 > no stents History of cataract surgery R/L History of colonoscopy History of dilatation and curettage History of esophagogastroduodenoscopy (EGD) History of surgery EUS 05/03/21 [facility] History of tooth extraction History of transesophageal echocardiography (HOMERO) Status post glaucoma surgery R/L eyes Family History Other No family history of adverse response to anesthesia Social History Smoking Status: Never smoker Second Hand Exposure: Yes (family smoked); Hx Alcohol Use: Yes Alcohol type: beer, wine and hard liquor Hx Substance Use: No Preferred Language: Pashto Communication Ability: Effective Distributor Sales Consultant Required: No Beliefs That Will Affect Care: None marital status: Current Living Situation: Spouse current occupational status: retired How many Children do You have: 2 Other Information That Helps Us Care for You: No Feels Safe at Home: Yes Safety Concerns: Feels Safe At This Time Assistive Devices: None Review of Systems Review of Systems: All systems reviewed & are unremarkable except as noted in HPI & below Physical Exam Constitutional: well developed, well nourished, average body habitus and cooperative; no acute distress Eyes: EOM intact bilaterally and + anisocoria L pupil 0.6 cm and R 0.3 ENMT: Ears: no external ear abnormality Nose: no external nose abnormality Mouth: + dry oral mucous membranes Neck: no nuchal rigidity Respiratory: normal respiratory effort and + cough (w/ deep inspiration) Auscultation: + diminished lung sounds, + crackles (throughout posterior ricardo) and + bronchovesicular breath sounds Cardiovascular: Rate/Rhythm: regular rate and regular rhythm Heart Sounds: + murmur Extremities: no edema Gastrointestinal (Abdomen): Inspection/Auscultation: normal bowel sounds Percussion/Palpation: abdomen soft; abdomen nontender Musculoskeletal: Extremities: strength 5/5 throughout Skin: no rashes, warm and dry Neurologic: abdul, fluent speech, no tremor Psychiatric: Orientation: oriented x 3 Speech: normal rate/rhythm/volume of speech Results & Data ([facility]) Vital Signs (Past 12 Hours) Vital Signs Temp Pulse Resp BP Pulse Ox 11/27/21 15:21 36.7 C 66 17 112/69 96 11/27/21 11:47 36.4 C L 70 17 119/72 95 11/27/21 11:37 96 11/27/21 07:25 36.7 C 65 17 128/80 97 Laboratory Results 11/27/21 06:15 11/27/21 12:00 serum osms 284 admission ua > 2+ protein, some epis and 5-10 WBC, no bacteria, no blood Diagnostic Findings CT chest non con FINDINGS: No enlarged axillary, mediastinal or hilar lymph nodes are present. There are median sternotomy wires, prosthetic aortic valve and repair of the ascending aorta. Caliber of the ascending aorta is normal. Mild cardiomegaly is noted. There is a small pericardial effusion. There is mild dilatation of the central pulmonary arteries. No pneumothorax is present. There is a trace left pleural effusion. Extensive bilateral lower lobe airspace opacity is present. There is interlobular septal thickening. There are additional airspace opacities within the upper lobe. Numerous tiny upper lobe predominant pulmonary nodules are present. Central airways are patent. Mild T12 compression deformity is chronic. No significant abnormalities identified within visualized portions of the upper abdomen. IMPRESSION: 1. Extensive bilateral lower lobe airspace opacities with additional bilateral upper lobe and right middle lobe opacities. Associated interlobular septal thickening. These opacities are nonspecific and could reflect multifocal pneu monia or alveolar pulmonary edema. Although less likely, pulmonary hemorrhage is also within the differential. A follow-up chest CT in 3 months to ensure resolution is recommended. 2. Mild cardiomegaly. 3. Dilatation of the central pulmonary arteries which raises the possibility of pulmonary arterial hypertension. 4. Trace left pleural effusion.
--- NOTE | 2021-11-27 17:25 | Hospitalist Progress Note ---
Date of Service November 27, 2021 Assessment & Plan (1) Acute hypoxemic respiratory failure: Plan: Acute Hypoxic Respiratory Failure Secondary to Bilateral Pneumonia, with possible Interstitial Lung Disease hx groundglass opacities on outpatient PetScan 11/04/21 for which patient was evaluated by [facility] hotel front desk clerk last week 1. No FDG-avid osseous lesions. 2. Dependent ground glass opacities throughout both lungs with associated activity, favoring an infectious/inflammatory process. 3. Focal activity associated with periapical lucency around the right mandibular first molar with associated odontogenic sinusitis. Recommend denti stry consult. currently on room air CT Chest: 1. Extensive bilateral lower lobe airspace opacities with additional bilateral upper lobe and right middle lobe opacities. Associated interlobular septal thickening. These opacities are nonspecific and could reflect multifocal pneumonia or alveolar pulmonary edema. Although less likely, pulmonary hemorrhage is also within the differential. A follow-up chest CT in 3 months to ensure resolution is recommended. 2. Mild cardiomegaly. 3. Dilatation of the central pulmonary arteries which raises the possibility of pulmonary arterial hypertension. 4. Trace left pleural effusion. sputum culture pending blood cultures pending Change Ceftri to Cefepime IV continue Doxycycline discussed with patient's Oncologist Dr. Brandon- recommend inpatient Pulmonology evaluation Multiple myeloma status post Xgeva, patient referred by [facility] statistician applied to [facility] on CKD Acute on chronic hyponatremia secondary to illness Crea improving from BL 1.0 to 1.9. now 1.3 Na [address] [employer] Attendant consulted Hold losartan until creatinine back to baseline hx aortic regurgitation/ascending aortic aneurysm status post AVR/ aneurysm repair hypertension, BP on the lower side Appropriate to decrease beta-price dose for now given borderline BP hx von Willebrand's disease as per records DVT prophylaxis. Heparin subcu Full code plan of care discussed with patient in detail and at length all questions answered she is understanding, agreeable, comfortable with the plan of care Admission and Anticipated Discharge Date Admission Date: November 26, 2021 Subjective ff up for pneumonia, hypoxia, etc seen resting in bed, comfortable on room air states she feels improved compared to admission has dry cough states breathing is better compared to admission no chest pain, palpitations, dizziness no other symptoms Review of Systems Review of Systems: all noted and negative except for above Physical Exam Physical Exam: General- oriented x 3, not in distress, speaks in sentences with no effort or accessory muscle use Head- atraumatic Eyes- PERRL, EOMI, anicteric ENT- oropharynx clear Neck- supple, no JVD, no adenopathy, no thyromegaly; carotids +2/2, no bruits appreciated Lungs- (+) crackles mid-base Heart- normal rate, regular rhythm; no murmur, no gallop, no rub appreciated Abdomen- normal bowel sounds, nondistended, soft, nontender, no masses or hepatosplenomegaly Extremities- no pretibial edema, no calf tenderness; peripheral pulses intact Neuro- alert, oriented x 3; CN 2-12 grossly intact; motor 5/5 bilaterally;sensation 100% on all extremities; no other gross focal neurologic deficits Skin- warm & dry Results & Data Results & Data ([facility]) Vital Signs (Past 12 Hours) Vital Signs Temp Pulse Resp BP Pulse Ox 11/27/21 15:21 36.7 C 66 17 112/69 96 11/27/21 11:47 36.4 C L 70 17 119/72 95 11/27/21 11:37 96 11/27/21 07:25 36.7 C 65 17 128/80 97 all noted and reviewed including below
[2021-11-27] MEDS ORDERED: CONSULT PHARMACY STA (18:11)
[2021-11-27] MEDS: CEFEPIME 2,000 MG in SYRINGE 0 ML IV SCH (18:24)
[2021-11-27 19:18] LABS: BUN Creatinine Ratio 28.1 (10-20); Calcium 8.7 mg/dl (8.5-10.1); Creatinine Clr Calc Pharmacy 36.5 ml/min; Est GFR (African American) 44.4 ml/min; Est GFR (Non-African American) 38.3 ml/min; Potassium 3.9 mmol/L (3.5-5.1)
[2021-11-27] MEDS ORDERED: cefTRIAXone SODIUM 2,000 MG in DEXTROSE 5% 50 ML IV SCH (22:00)
[2021-11-28] MEDS: HEPARIN SOD 5,000 UNIT/0.5 ML VIAL SQ SCH ×2 (06:26→14:33)
[2021-11-28] MEDS: CEFEPIME 2,000 MG in SYRINGE 0 ML IV SCH (06:31)
[2021-11-28 07:30] LABS: Basophils # (auto) 0.01 K/uL (0-0.2); Basophils % (auto) 0.1 %; Eosinophils # (auto) 0.05 K/uL (0-0.5); Eosinophils % (auto) 0.7 %; Hematocrit (blood only) 34.1 % (37-47); Hemoglobin 11.6 g/dL (12.0-16.0); Immature Granulocytes # (auto) 0.07 K/uL (0.00-0.02); Lymphocytes # (auto) 1.37 K/uL (1.2-3.4); Lymphocytes % (auto) 19.7 %; Mean Corpuscular Hemoglobin 30.9 pg (25-34); Mean Corpuscular Volume 90.7 fL (80-100); Mean Platelet Volume 9.5 fL (7.4-10.4); Monocytes # (auto) 0.96 K/uL (0.11-0.59); Monocytes % (auto) 13.8 %; Neutrophils # (auto) 4.48 K/uL (1.4-6.5); Neutrophils % (auto) 64.7 %; Platelet Count 350 K/uL (130-400); RDW Coefficient of Variation 13.4 % (11.5-14.5); RDW Standard Deviation 44.8 fL (36.4-46.3); Red Blood Count 3.76 M/uL (4.2-5.4); White Blood Count 6.94 K/uL (4.8-10.8)
[2021-11-28 07:54] LABS: BUN Creatinine Ratio 29.4 (10-20); Calcium 9.1 mg/dl (8.5-10.1); Creatinine Clr Calc Pharmacy 33.5 ml/min; Potassium 3.6 mmol/L (3.5-5.1)
[2021-11-28] MEDS: DOXYCYCLINE HYCLATE 100 MG CAP PO SCH (09:03)
[2021-11-28] MEDS: carvediloL 3.125 MG TAB PO SCH (09:03)
--- NOTE | 2021-11-28 11:01 | Pulmonary Consultation ---
Date of Consultation November 28, 2021 Assessment & Plan (1) Idiopathic interstitial pneumonia: The cause of the groundglass opacities is unclear at this time and the chronicity is unclear as well. She does note that she was told about these findings on a CT chest from a couple of years ago. She should follow-up with her outpatient horticulture superintendent. She will likely need serologic labs to evaluate for mixed connective tissue disorder and PFTs. High-resolution CT chest imaging can be considered as well. I offered a bronchoscopy to her while as an inpatient to rule out eosinophilic pneumonia, organizing pneumonia and other infectious etiology. She notes that she does not want to proceed with a bronchoscopy at this time and would prefer to follow-up with her outpatient horticulture superintendent. She is also overwhelmed with her recent myeloma diagnosis and wants to get everything straightened away at [facility] prior to pursuing the lung issues further. I think this is reasonable at this time as she is currently on room air and denies any dyspnea. Empiric treatment with antibiotics is reasonable for total 5 days. Recommend discharging the patient home. D/W hospitalist. Thank you for allowing me to participate in the care of this patient. Pulmonary will sign off. Please call with questions. History of Present Illness Reason for Consultation: Groundglass opacities Attending Physician: Marcos Lam MD History of Present Illness 76-year-old female with a past medical history of bicuspid aortic valve status post aortic valve replacement and ascending aortic repair, von Willebrand disease and chronic hyponatremia who presented to the hospital due to hypoxemic respiratory failure and concerns for pneumonia. COVID-19 testing and flu testing and RSV were negative. She follows with pulmonology in [facility]. She also has a history of multiple myeloma and follows with Dr. Brandon. She recently had a PET/CT scan which demonstrated groundglass opacities and underwent a CT chest during this hospitalization. CT chest revealed extensive bilateral lower lobe groundglass opacities and right middle lobe opacities with associated interlobular septal thickening. Dilation of the pulmonary arteries noted as well. Scan here which demonstrated similar findings. She notes ongoing nonproductive cough and shortness of breath. No chest pain. No fevers or chills. proBNP was noted to be elevated to 295 pg/mL on 11/28/2021. Procalcitonin was also elevated to 1.94 on 11/26/2021. She is leukopenic and has a white count of 3760. Hemoglobin 11.6 which is near baseline. Platelet count is 350. No significant peripheral eosinophilia. INR 1.0. Sodium level 127. Creatinine 1.36. Urine cultures and blood cultures negative to date. Patient is currently on cefepime and doxycycline. She does follow with a [facility] horticulture superintendent on an outpatient basis who she has seen months. She does not recall the name. She denies having any recent PFTs. She denies any shortness of breath or cough at present. She did note that she developed a flulike illness roughly 2 weeks ago with muscle aches and then a nonproductive cough. She also had fever at 103. She denies any fevers or chills currently. She denies any muscle aches at this time. She denies rash. She feels overwhelmed with her recent diagnosis of myeloma and now this hospitalization. She is eager to go home. She notes that she was able to ambulate around the halls without any difficulty. She is currently on room air saturating 97%. Allergies Allergy/AdvReac Type Severity Reaction Status Date / Time bee venom protein (honey bee) Allergy Severe Anaphylaxis Verified 11/26/21 20:29 pollen extracts Allergy Intermediate runny Verified 11/26/21 20:29 nose, cough, itchy eyes Home Medications Medication Instructions Recorded Confirmed Type aspirin 81 mg tablet,delayed 81 mg PO HS 02/25/19 11/26/21 History release carvedilol 12.5 mg tablet 12.5 mg PO BID #180 tab 07/25/19 11/26/21 Rx acetaminophen 500 mg tablet 500 mg PO Q6H PRN 04/29/21 11/26/21 History losartan 100 mg tablet 50 mg PO QAM 04/29/21 11/26/21 History epinephrine 0.3 mg/0.3 mL 0.3 mg IM DIRECTED PRN 11/26/21 11/26/21 History injection, auto-injector (EpiPen) erythromycin with ethanol 2 % 1 applic TOPICAL BID PRN 11/26/21 11/26/21 History topical gel Patient History Medical History (Updated 11/28/21 @ 13:23 by Teddy Ayala MD) Acid reflux Arthritis CKD (chronic kidney disease) stage 4, GFR 15-29 ml/min emerged abruptly Aug 2021 Closed left arm fracture Hx, "healed" without surgical intervention, residual soreness Glaucoma HX Ground glass opacity present on imaging of lung History of anemia History of blood transfusion x2 episodes (40+ years ago) Hx of aortic valve disorder s/p AVR (+ TAA repair)- 2012 2/ bicuspic AV exercise stress test (06/15/19- S) with normal prosthesis systolic gradients for this type prosthesis Idiopathic interstitial pneumonia Migraine HX Pancreatic cyst Temporomandibular joint disorder No locking, wears mouth guard HS Von Willebrand disease, type I Surgical History History of aortic aneurysm repair TAA repair- 2012 ([facility]) History of aortic valve replacement 2012 ([facility]) d/t bicuspic valve disorder (follows with Dr. VELÁSQUEZ) History of bilateral tubal ligation History of cardiac cath 2011 > no stents History of cataract surgery R/L History of colonoscopy History of dilatation and curettage History of esophagogastroduodenoscopy (EGD) History of surgery EUS 05/03/21 [facility] History of tooth extraction History of transesophageal echocardiography (HOMERO) Status post glaucoma surgery R/L eyes Family History Other No family history of adverse response to anesthesia Social History Smoking Status: Never smoker Second Hand Exposure: Yes (family smoked); Hx Alcohol Use: Yes Alcohol type: beer, wine and hard liquor Hx Substance Use: No Preferred Language: Mohawk Communication Ability: Effective Right Of Way Supervisor Required: No Beliefs That Will Affect Care: None marital status: Current Living Situation: Spouse current occupational status: retired How many Children do You have: 2 Other Information That Helps Us Care for You: No Feels Safe at Home: Yes Safety Concerns: Feels Safe At This Time Assistive Devices: None Review of Systems Review of Systems: All systems reviewed & are unremarkable except as noted in HPI & below Physical Exam Constitutional: WD/WN, vitals as above Eyes: PERRL, conjunctivae normal, anicteric sclerae Respiratory: Bilateral lower lobe crackles noted. No increased work of breathing or wheezing. Cardiovascular: RRR, no murmur, no edema Gastrointestinal (Abdomen): normal bowel sounds, soft, nontender, no hepatosplenomegaly Musculoskeletal: no cyanosis or clubbing, extremities motor strength 5/5 Skin: no rashes, warm and dry Neurologic: PERRL, EOMI, accommodation nl, no face palsy, no dysarthria Psychiatric: A+Ox3, euthymic affect Results & Data Results & Data ([facility]) Vital Signs (Past 12 Hours) Vital Signs Temp Pulse Pulse Resp BP BP Pulse Ox 11/28/21 10:18 66 11/28/21 07:56 36.8 C 73 18 148/95 H 97 11/28/21 03:33 36.8 C 68 18 127/82 96 11/27/21 23:00 36.6 C 69 68 16 122/76 94 PG Care Time/CCT Total # of Minutes Spent Total Time Spent with Patient: Total time spent is greater than 50% in coordination of care (as documented) at patient's floor/unit and/or counseling patient: Coding Level of Care Code 00159 Initial Inpt Care Lvl 2 Diagnoses Idiopathic interstitial pneumonia J84.111
--- NOTE | 2021-11-28 12:09 | Nephrology Progress Note ---
Date of Service November 28, 2021 Assessment & Plan (1) Electrolyte and fluid disorder: Plan: acute on chronic hyponatremia and marked low reading in serum bicarbonate in s etting of active/ diffuse PNA and MM. goal sNa for AM is 129, if we can move that way. appears euvolemic on exam but markedly abnormal lung exam and imaging. chronic hyponatremia w/ sNa in low 130s >4 years and recently in high 120s as OP. suspect hyponatremia driven by chronic /structural lung disease -ordered urine studies and will repeat serum osms in am > these have not posted; can be done as OP -maintain eukalemia -treat PNA ->>recommend ABG to explain low bicarb which is new/slightly worse DISCHARGE RECS -do not d/c on lasix -advise pt (already d/w her) to do 3 day intake log >> all food and (in oz) fluids for review -ensure pulm f/u and HRCT -hospital discharge appt with me or Dr Mccarthy in 2-4 wks -no nsaids -renal RN to order one time serum osms, rd urine osms, rd urine sodium and q2 wk bmp after d/c > pls have d/c exercise planner alert renal RN on this (2) CKD (chronic kidney disease) stage 4, GFR 15-29 ml/min: Plan: emerged abruptly Aug 2021 > w/ 1/2 gm proteinuria; recommend neph f/u soon after hospital d/c (pt planning move to [place] so may be after move that she establishes but would not defer for long/ high risk for progression) renal function notably better than baseline w/ IV fluids (3) Ground glass opacity present on imaging of lung: Plan: pulm had requested hi resolution CT prior to admission; ddx was heart failure, infectious pneumonitis, inhalation injury, myeloma >?if CT chest done here adequate/fulfills high resolution request -BNP is wnl >ordered preliminary serologies for pulmonary renal syndrome (though no hematuria) including ANCA and anti GBM and ASO, anti DNAse doubt lupus or anti phospholipid; unable to order anti GBM and will defer/revisit in am -confirmed w/ pt she plans to f/u w/[facility] pulm and to get HRCT; pulm may consider bronchoscopy and/or further serologic work up/eval for pulmonary renal syndrome or other Admission and Anticipated Discharge Date Admission Date: November 26, 2021 Subjective seen on rounds this am; feels breathing better/stable, still poor appetite; no n/v, no balance issues; down about 10-15 lb in past 18 mos; ongoing poor appeite Review of Systems Review of Systems: All systems reviewed & are unremarkable except as noted in Subjective Physical Exam Constitutional: well developed, well nourished, average body habitus and cooperative; no acute distress Eyes: EOM intact bilaterally and + anisocoria ENMT: Ears: no external ear abnormality Nose: no external nose abnormality Mouth: + dry oral mucous membranes Neck: no nuchal rigidity Respiratory: normal respiratory effort and + cough (w/ deep inspiration still) Auscultation: + diminished lung sounds, + crackles (throughout posterior ricardo) and + bronchovesicular breath sounds Cardiovascular: Rate/Rhythm: regular rate and regular rhythm Heart Sounds: + murmur Extremities: no edema Gastrointestinal (Abdomen): Inspection/Auscultation: normal bowel sounds Percussion/Palpation: abdomen soft; abdomen nontender Musculoskeletal: Extremities: strength 5/5 throughout Skin: no rashes, warm and dry Psychiatric: Orientation: oriented x 3 Speech: normal rate/rhythm/volume of speech Results & Data ([facility]) Vital Signs (Past 12 Hours) Vital Signs Temp Pulse Pulse Resp BP Pulse Ox 11/28/21 10:18 66 11/28/21 07:56 36.8 C 73 18 148/95 H 97 11/28/21 03:33 36.8 C 68 18 127/82 96 Laboratory Results 11/28/21 06:18 11/28/21 06:18
--- NOTE | 2021-11-28 13:45 | Hospitalist Progress Note ---
Date of Service November 28, 2021 Assessment & Plan (1) Idiopathic interstitial pneumonia: Plan: Acute Hypoxic Respiratory Failure Secondary to Idiopathic Interstitial Pneumonia hx groundglass opacities on outpatient PetScan 11/04/21 for which patient was evaluated by [facility] tanyard worker last week 1. No FDG-avid osseous lesions. 2. Dependent ground glass opacities throughout both lungs with associated activity, favoring an infectious/inflammatory process. 3. Focal activity associated with periapical lucency around the right mandibular first molar with associated odontogenic sinusitis. Recommend dentistry consult. CT Chest: 1. Extensive bilateral lower lobe airspace opacities with additional bilateral upper lobe and right middle lobe opacities. Associated interlobular septal thickening. These opacities are nonspecific and could reflect multifocal pneumonia or alveolar pulmonary edema. Although less likely, pulmonary hemorrhage is also within the differential. A follow-up chest CT in 3 months to ensure resolution is recommended. 2. Mild cardiomegaly. 3. Dilatation of the central pulmonary arteries which raises the possibility of pulmonary arterial hypertension. 4. Trace left pleural effusion. currently on room air sputum culture: patient could not provide a sample blood cultures: pending Changed Ceftri to Cefepime IV, also given Doxycycline discussed with patient's Oncologist Dr. Brandon- recommend inpatient Pulmonology evaluation 11/28 remain on room air feels better overall discussed with Saw Cleaner Dr. Ayala- patient prefers to continue outpatient work up, possible bronchoscopy, as outpatient will discharge on Levaquin 500mg daily x 7 days ( per patient, she has taken Ciprofloxacin in the past with no problems) Multiple myeloma statuspost Xgeva, patient referred by [facility] wire stitcher machine to [facility] ARF on CKD Acute on chronic hyponatremia secondary to illness Crea improving from BL 1.0 to 1.9. now 1.3 Na 124--> 127 Operation Agent consulted: Dr. Kate recommendations: -do not d/c on lasix -advise pt (already d/w her) to do 3 day intake log >> all food and (in oz) fluids for review -ensure pulm f/u and HRCT -hospital discharge appt with me or Dr Mccarthy in 2-4 wks -no nsaids -renal RN to order one time serum osms, rd urine osms, rd urine sodium and q2 wk bmp after d/c > pls have d/c materials planner/production planner alert renal RN on this Hx aortic regurgitation/ascending aortic aneurysm status post AVR/ aneurysm repair Hypertension continue Losartan and Bblocker monitor BP and crea as outpatient Hx of von Willebrand's disease as per records Disposition d/c home ff up with PCP and Pulmonary in 1 week ff up with Nephro Dr. Kate in 2 weeks Admission and Anticipated Discharge Date Admission Date: November 26, 2021 Subjective ff up for BL pneumonia, etc seen resting in bed, comfortable sitting up, reading her tablet states she feels better overall breathing fine less cough, dry no chest pain, dyspnea, palpitations, dizziness no headache, dizziness, abdominal pain ,nausea/vomiting, problems with urination no other symptoms states she is ready and would like to be discharged today Review of Systems Review of Systems: all noted and negative except for above Physical Exam Physical Exam: General- oriented x 2, not in distress, speaks in sentences with no effort or accessory muscle use Eyes- anicteric Neck- no JVD Lungs- mild crackles at the bases no wheezing good air entry bilaterally Heart- normal rate, regular rhythm; no murmurs Abdomen- normal bowel sounds, nondistended, soft, nontender Extremities- no pretibial edema, no calf tenderness Neuro- alert, oriented x 3; no gross focal neurologic deficits Skin- warm & dry Results & Data Results & Data ([facility]) Vital Signs (Past 12 Hours) Vital Signs Temp Pulse Pulse Resp BP Pulse Ox 11/28/21 12:36 36.7 C 74 16 133/87 97 11/28/21 10:18 66 11/28/21 07:56 36.8 C 73 18 148/95 H 97 11/28/21 03:33 36.8 C 68 18 127/82 96 all noted and reviewed including below
[2021-11-28 14:16] LABS: Allen Test Pos (Pos); Base Excess ABG -6.2 mEq/L (-9-1.8); HCO3 ABG 18 mmol/L (19-24); Oxygen Saturation ABG 94.2 % (90-95); PCO2 ABG 30 mmHg (35-46); PO2 ABG 68 mmHg (80-95); pH ABG 7.39 (7.35-7.45)
--- NOTE | 2021-11-28 16:38 | Discharge Summary ---
Date of Service November 28, 2021 Admission HPI Per Admitting Provider History obtained from patient, family, and records. Medical history significant for aortic regurgitation/ascending aortic aneurysm status post AVR/ aneurysm repair, hypertension, multiple myeloma status post Xgeva, von Willebrand's disease as per records, CRI (baseline creatinine 1.6- 1.7), chronic hyponatremia, history groundglass opacities on outpatient chest imaging. Few days history of sinus congestion followed by cough productive of junky yellow sputum and fever at home. No chest pain. Some shortness of breath. Not sure about recent sick contacts. Patient completed COVID-19 vaccination. Denies aspiration. O2 sats noted to be 80s upon arrival at the ER. Ceftriaxone and azithromycin given at the ER for pneumonia. Medical History as above Surgical History : Cataract surgery, dental surgery, laser trabeculoplasty, BTL, prostatic aortic valve replacement, sternal debridement Family History : Breast cancer, heart disease, lung cancer Personal/Social history : Non-smoker, occasional EtOH intake, retired mental health therapist Admission Exam Per Admitting Provider Constitutional: WD/WN, vitals as above Respiratory: normal respiratory effort, lungs clear to auscultation Cardiovascular: RRR, no murmur, no edema Gastrointestinal (Abdomen): normal bowel sounds, soft, nontender, no hepatosplenomegaly Principal Diagnosis Idiopathic interstitial pneumonia Discharge Exam General- oriented x 2, not in distress, speaks in sentences with no effort or accessory muscle use Eyes- anicteric Neck- no JVD Lungs- mild crackles at the bases no wheezing good air entry bilaterally Heart- normal rate, regular rhythm; no murmurs Abdomen- normal bowel sounds, nondistended, soft, nontender Extremities- no pretibial edema, no calf tenderness Neuro- alert, oriented x 3; no gross focal neurologic deficits Skin- warm & dry Discharge Data Allergies Allergy/AdvReac Type Severity Reaction Status Date / Time bee venom protein (honey bee) Allergy Severe Anaphylaxis Verified 11/26/21 20:29 pollen extracts Allergy Intermediate runny Verified 11/26/21 20:29 nose, cough, itchy eyes Consultations 11/26/21 20:35 ED Decision to Admit Stat 11/27/21 13:32 Consult Nephrology Routine 11/27/21 18:09 Consult Pulmonology Routine Ordered Studies 11/27/21 08:05 CT chest diagnostic wo con Routine COMPARISON STUDY: Chest radiograph 11/26/2021. CT DOSE: 299.52 mGy.cm TECHNIQUE: Axial images of the chest were obtained without IV contrast. Images were reviewed in the axial, sagittal, and coronal planes. IV contrast was not administered for this examination. Automated exposure control was utilized for the study. A dose lowering technique was utilized adhering to the principles of ALARA. FINDINGS: No enlarged axillary, mediastinal or hilar lymph nodes are present. There are median sternotomy wires, prosthetic aortic valve and repair of the ascending aorta. Caliber of the ascending aorta is normal. Mild cardiomegaly is noted. There is a small pericardial effusion. There is mild dilatation of the central pulmonary arteries. No pneumothorax is present. There is a trace left pleural effusion. Extensive bilateral lower lobe airspace opacity is present. There is interlobular septal thickening. There are additional airspace opacities within the upper lobe. Numerous tiny upper lobe predominant pulmonary nodules are present. Central airways are patent. Mild T12 compression deformity is chronic. No significant abnormalities identified within visualized portions of the upper abdomen. IMPRESSION: 1. Extensive bilateral lower lobe airspace opacities with additional bilateral upper lobe and right middle lobe opacities. Associated interlobular septal thickening. These opacities are nonspecific and could reflect multifocal pneumonia or alveolar pulmonary edema. Although less likely, pulmonary hemorrhage is also within the differential. A follow-up chest CT in 3 months to ensure resolution is recommended. 2. Mild cardiomegaly. 3. Dilatation of the central pulmonary arteries which raises the possibility of pulmonary arterial hypertension. 4. Trace left pleural effusion. ACT 112: Negative or not required by law. Hospital Course (1) Idiopathic interstitial pneumonia: Acute Hypoxic Respiratory Failure Secondary to Idiopathic Interstitial Pneumonia hx groundglass opacities on outpatient [employer] 11/04/21 for which patient was evaluated by [facility] rides attendant last week 1. No FDG-avid osseous lesions. 2. Dependent ground glass opacities throughout both lungs with associated activity, favoring an infectious/inflammatory process. 3. Focal activity associated with periapical lucency around the right mandibular first molar with associated odontogenic sinusitis. Recommend dentistry consult. CT Chest: 1. Extensive bilateral lower lobe airspace opacities with additional bilateral upper lobe and right middle lobe opacities. Associated interlobular septal thickening. These opacities are nonspecific and could reflect multifocal pneumonia or alveolar pulmonary edema. Although less likely, pulmonary hemorrhage is also within the differential. A follow-up chest CT in 3 months to ensure resolution is recommended. 2. Mild cardiomegaly. 3. Dilatation of the central pulmonary arteries which raises the possibility of pulmonary arterial hypertension. 4. Trace left pleural effusion. currently on room air sputum culture: patient could not provide a sample blood cultures: pending Changed Ceftri to Cefepime IV, also given Doxycycline discussed with patient's Oncologist Dr. Brandon- recommend inpatient Pulmonology evaluation 11/28 remain on room air feels better overall discussed with Inside Sales Lead Dr. Ayala- patient prefers to continue outpatient work up, possible bronchoscopy, as outpatient will discharge on Levaquin 500mg daily x 7 days ( per patient, she has taken Ciprofloxacin in the past with no problems) Multiple myeloma statuspost Xgeva, patient referred by [facility] product marketing executive to [facility] on CKD Acute on chronic hyponatremia secondary to illness Crea improving from BL 1.0 to 1.9. now 1.3 Na 124--> 127 Cable Splicing Technician consulted: Dr. Rodriguez recommendations: -do not d/c on lasix -advise pt (already d/w her) to do 3 day intake log >> all food and (in oz) fluids for review -ensure pulm f/u and HRCT -hospital discharge appt with me or Dr Mccarthy in 2-4 wks -no nsaids -renal RN to order one time serum osms, rd urine osms, rd urine sodium and q2 wk bmp after d/c > pls have d/c supply planner alert renal RN on this Hx aortic regurgitation/ascending aortic aneurysm status post AVR/ aneurysm repair Hypertension continue Losartan and Bblocker monitor BP and crea as outpatient Hx of von Willebrand's disease as per records Disposition d/c home ff up with PCP and Pulmonary in 1 week ff up with Nephro Dr. Rodriguez in 2 weeks Total Time Total Time Spent Total Time Spent (In Minutes): >30 minutes Discharge Plan Discharge Items Patient Disposition: Home - Self-Care Reason For Visit: RESP FAILURE Discharge Diagnosis: IDIOPATHIC INTERSTITIAL PNEUMONIA Activity: As commented below Activity Comment: INCREASE ACTIVITY GRADUALLY TOLERATED Exercise/Sports: Wait until after follow-up appointment Driving/Machine Use: NO DRIVING UNTIL RE-EVALUATED AND ALLOWED BY PRIMARY CARE PHYSICIAN Non-emergency contact: Primary Care Provider Call non-emergency contact if: you have any medication questions, your symptoms worsen and you have a fever Follow-up/Referrals: Zee Rodriguez MD, PhD [Physician] - 01/15/22 1:00 pm (Date & Time 01/15/2022 1:00 PM Provider Jose Mccarthy MD Department Nephrology, [facility] ) Kaz Hewitt MD [Primary Care Provider] - 12/03/21 12:20 pm (Date & Time 12/03/2021 12:20 PM Provider Kandi Grider PA-C Department Family Practice [facility] ) Maribel Mancilla CRNP [Outside Practitioners] - 12/05/21 12:00 pm (Date & Time 12/05/2021 12:00 PM Provider FELIZ Rubio Department Pulmonary Medicine, [facility] ) Diet: Heart Healthy Addtl Attending Provider Instructions: PLEASE REFER TO YOUR NEW MEDICATION LIST AND FOLLOW INSTRUCTIONS CAREFULLY. YOUR NEW MEDICATIONS INCLUDE: LEVAQUIN- antibiotic for pneumonia Take a probiotic daily and eat yogurt daily x 2 weeks to prevent diarrhea caused by antibiotics. Continue to use Incentive Spirometry at home. PLEASE CALL YOUR PRIMARY CARE PHYSICIAN OR RETURN TO THE ER IF WITH WORSENING OF SYMPTOMS, INCLUDING SHORTNESS OF BREATH, FEVER/CHILLS, CHEST PAIN, WEAKNESS, NAUSEA/VOMITING. FOLLOW UP WITH PRIMARY CARE PHYSICIAN IN 1 WEEK OUTLINED ABOVE. FOLLOW UP WITH GAME AUTHOR IN 1 WEEK. FOLLOW UP WITH PARTS SALES COUNTERPERSON DR. RODRIGUEZ IN 2 WEEKS. PLEASE CALL HER OFFICE FOR AN APPOINTMENT. Pending Studies at Discharge: Yes Studies:: RESULTS OF SEROLOGIC MARKERS FOR KIDNEY DISEASE- ORDERED BY DR. RODRIGUEZ Stand-Alone Forms: My [facility] [place], Smoking Cessation Medications and DC Order Prescriptions: New levofloxacin 750 mg tablet 750 mg PO DAILY 7 Days Qty: 7 RF: 0 Continued carvedilol 12.5 mg tablet 12.5 mg PO BID Qty: 180 RF: 1 aspirin 81 mg tablet,delayed release (DR/EC) 81 mg PO HS RF: 0 losartan 100 mg tablet 50 mg PO QAM RF: 0 acetaminophen 500 mg Tablet 500 mg PO Q6H PRN (Reason: Pain) RF: 0 epinephrine [EpiPen] 0.3 mg/0.3 mL auto-injector 0.3 mg IM DIRECTED PRN (Reason: bronchodilation) RF: 0 erythromycin with ethanol 2 % gel 1 applic topical BID PRN (Reason: AFFECTED AREA) RF: 0 Discharge Orders: Discharge Order (Routine); Ordered 11/28/21 Ordered By: Marcos Lam Admission Data Admit Date/Time: 11/26/21 22:59 Attending Provider: Marcos Lam Admit Provider: Lawrence Hinton Primary Care Provider: Kaz Hewitt Other Providers: Lawrence Hinton ; Zee Rodriguez ; Teddy Ayala Other Interventions: Discharge Summary Assessment (RN) Last Done: 11/28/21 14:38
== END 2021-11-28 16:33 | disposition home or self-care (01) | DRG 196 ==
LOC: ED 18:48 → 2S 22:59 → SUATTDRO 22:59 → 2S 23:46